=== PATIENT | male | born 1960 | race Caucasian/White ===

== ENCOUNTER 2020-08-10 15:08 | Emergency (ER) | payer OTHER ==
[~2020-08-10] VITALS: Ht 193 cm; Wt 68.0 kg
[2020-08-10 16:23] VITALS: BP 117/68
== END 2020-08-10 16:43 | disposition home or self-care (01) ==
LOC: ER 15:08
DX: F22 Delusional disorders (principal)
CPT/HCPCS: 99283

== ENCOUNTER 2020-08-15 15:00 | Emergency (ER) | payer OTHER ==
[~2020-08-15] VITALS: Ht 190.5 cm; Wt 63.0 kg
[2020-08-15 16:25] VITALS: BP 99/66
[2020-08-15] MEDS ORDERED: ACETAMINOPHEN 325MG TABLET PO ONE (17:30)
== END 2020-08-15 18:10 | disposition left against medical advice (07) ==
LOC: ER 15:00
DX: R51.9 Headache, unspecified (principal); S00.31XA Abrasion of nose, initial encounter; Y04.0XXA Assault by unarmed brawl or fight, initial encounter; Y93.89 Activity, other specified; Y92.89 Other specified places as the place of occurrence of the external cause; Y99.8 Other external cause status
CPT/HCPCS: 99281